=== PATIENT | female | born 1970 | race Two or more races ===

== ENCOUNTER 2016-07-13 19:36 | Emergency (ER) | payer OTHER ==
[2016-07-13 19:58] VITALS: BP 137/83; TEMP 98.1
[2016-07-13] MEDS ORDERED: IPRATROPIUM/ALBUTEROL 3 ML DEYVIAL IH ONE (20:05)
[2016-07-13] MEDS ORDERED: AZITHROMYCIN 250 MG TAB PO ONE (20:06)
--- NOTE | 2016-07-13 20:41 | UCPHY ---
H & P Time Seen by Provider: 07/13/16 19:57 Patient Type: Established HPI/ROS: This patient reports a one-week history of coughing. Despite using albuterol she reports ongoing hacking cough with increasing wheeze. She was seen near the onset of the symptoms at [facility] Emergency Department. She was diagnosed with a viral illness at that time. She was prescribed albuterol and guaifenesin with codeine and she ran out of the guaifenesin with codeine. She has associated nasal congestion. She reports onset of low-grade fevers over the past few days with sputum that appears dark yellow for 3 days. ROS: No high fevers or chills. She does report low-grade fevers. No other constitutional symptoms. HEENT: No facial pain. No sore throat. No ear pain. Pulmonary: No pleuritic pain. No respiratory distress. Cardiovascular: No lightheadedness. No leg swelling. GI: No vomiting. Integumentary: No rash. 10 point ROS is otherwise negative. Past Medical/Surgical History: Idiopathic pulmonary fibrosis Fibromyalgia Lupus Smoking Status: Never smoked Physical Exam: Vital signs are normal tonight except for an O2 sat of 95% room air General Appearance: Alert, no distress. Eyes: Pupils equal and round no pallor or injection. ENT, Mouth: Mucous membranes moist. Respiratory: Expiratory wheeze bilaterally with rhonchi bilaterally. Minimal rales at the bases that are consistent with prior exams of had with her and I think her baseline pulmonary fibrosis findings. Cardiovascular: Regular rate and rhythm. No murmur gallop rub. Gastrointestinal: Abdomen is soft and nontender, no masses, bowel sounds normal. Neurological: Alert with no focal deficits Skin: Warm and dry, no rashes. Musculoskeletal: Neck is supple nontender. Extremities are symmetrical, full range of motion. Psychiatric: Mood and affect normal DIFFERENTIAL DIAGNOSIS: After history and physical exam differential diagnosis was considered for bronchitis, pneumonia, URI with cough and mild asthma Constitutional: Initial Vital Signs Temperature (C) 36.7 C 07/13/16 19:53 Heart Rate 72 07/13/16 19:53 Respiratory Rate 20 07/13/16 19:53 Blood Pressure 137/83 H 07/13/16 19:53 O2 Sat (%) 95 07/13/16 19:53 O2 Delivery Mode Room Air Allergies/Adverse Reactions: metoclopramide HCl [From Reglan] Allergy (Intermediate, Verified 04/27/15 19:42) ROHINI LYNN prochlorperazine edisylate [From Compazine] Allergy (Verified 04/27/15 19:42) prochlorperazine maleate [From Compazine] Allergy (Verified 04/27/15 19:42) Home Medications: Medication Instructions Recorded Cymbalta 04/27/15 Albuterol 07/13/16 Albuterol Hfa Anes Only [Proair 2 puffs IH Q4 PRN #1 mdi 07/13/16 Hfa Icu (*)] Azithromycin [Zithromax] 250 mg PO DAILY #6 tab 07/13/16 Fluticasone Hfa 220 Mcg [Flovent 2 puffs IH DAILY #1 mdi 07/13/16 220 MCG Hfa MDI (*)] ROBITUSSIN-CF SYRUP 07/13/16 MDM/Departure - MDM Medications Given: Discontinued Medications Albuterol/Ipratropium (Duoneb) 3 ml IH EDNOW ONE Stop: 07/13/16 20:06 Last Admin: 07/13/16 20:17 Dose: 3 ml Azithromycin (Zithromax) 500 mg PO EDNOW ONE PRN Reason: Protocol Stop: 07/13/16 20:07 Last Admin: 07/13/16 20:17 Dose: 500 mg ED Course/Re-evaluation: This patient appears well clinically. I declined to provide guaifenesin with codeine as she is on no narcotics list. Explain this to her. She is given a DuoNeb with decreased wheeze increased aeration subjective improvement. Will start her on Flovent steroid inhaler in addition to her albuterol and Zithromax. 1st dose of Zithromax is given here. - Depart Disposition: Home, Routine, Self-Care Clinical Impression: Acute bronchitis Qualifiers: Bronchitis organism: unspecified organism Qualified Code(s): J20.9 - Acute bronchitis, unspecified Condition: Good Instructions: Acute Bronchitis (ED) Additional Instructions: Diagnosis: Acute bronchitis Plan: Humidifier Albuterol inhaler-2 puffs every 4 hours or your nebulizer every 4-6 hours for cough, wheeze or shortness of breath Flovent steroid inhaler for the next 10-14 days Zithromax antibiotic Follow up primary care physician for any ongoing symptoms Good the emergency department for any significant worsening despite the treatment plan. Prescriptions: Albuterol Hfa Anes Only [Proair Hfa Icu (*)] 2 puffs IH Q4 PRN #1 mdi PRN Reason: Wheezing Azithromycin [Zithromax] 250 mg PO DAILY #6 tab Fluticasone Hfa 220 Mcg [Flovent 220 MCG Hfa MDI (*)] 2 puffs IH DAILY #1 mdi Referrals: Lori Cummins DO [Primary Care Provider] - As per Instructions - PQRS PQRS Measurement: NA
[2016-07-13 20:58] VITALS: PULSE 78; RESP 18; O2SAT 97
== END 2016-07-13 20:58 | disposition home or self-care (01) ==
LOC: CED 19:36
DX: J20.9 Acute bronchitis, unspecified (principal)
CPT/HCPCS: 99214-PO; G0463-PO

== ENCOUNTER 2016-09-15 19:06 | Emergency (ER) | payer OTHER ==
[2016-09-15 19:26] VITALS: RESP 16; TEMP 98.8
--- NOTE | 2016-09-15 19:26 | EDPHY ---
H & P HPI/ROS: CHIEF COMPLAINT: "Lupus is acting up" HISTORY OF PRESENT ILLNESS: The patient is a 45 y/o female arriving with her mother complaining of Lupus exacerbation including a rash, anxiety, and migraine headache. She self- administered 30mg IM Toradol this morning for her migraine without complete alleviation. She has some associated nausea. She states migraine cocktails usually work for her when she comes into the ED. She states her migraine feels the same as previous episodes. No weakness or paresthesias. The rash is pruritic , has been present for a few days, is similar to previous rashes she has experienced. Her SLE was recently diagnosed and she is being followed by a specialist for this problem. She denies fever, shortness of breath, chest pain , abdominal pain, vomiting, diarrhea, dysuria. REVIEW OF SYSTEMS: A ten point review of systems was performed and is negative with the exception of the items mentioned in the HPI. Source: Patient Exam Limitations: No limitations - Personal History Tetanus Vaccine Date: 2007 - Medical/Surgical History PMH: PMH includes: 1. Lupus 2. Migraines Hx Asthma: Yes Hx Chronic Respiratory Disease: Yes Hx Diabetes: No Hx Cardiac Disease: No Hx Renal Disease: No Hx Cirrhosis: No Hx Alcoholism: No Hx HIV/AIDS: No Hx Splenectomy or Spleen Trauma: No Other PMH: idiopathic pulmonary fibrosis, lupus,fibramyalgia. Chronic Migraines. Gallbladder. partial thyroid. carpal tunnel bilat - Social History Smoking Status: Never smoked Alcohol Use: None Drug Use: None Additional Social History: Mother at bedside. PCP: Dr. Cummins. - Physical Exam Exam: General Appearance: Alert. Vital signs reviewed. Eyes: Pupils equal and round, no conjunctival injection, no discharge. Anicteric. ENT, Mouth: Mucous membranes are moist, no oropharyngeal erythema or edema. Neck: No lymphadenopathy, supple. Respiratory: Lungs are clear to auscultation; no wheezes, rales, or rhonchi. Cardiovascular: Regular rate and rhythm; no murmur, rub, or gallop. Gastrointestinal: Abdomen is soft and nontender, no masses or organomegaly, bowel sounds normal. Skin: Warm and dry, erythematous papular rash on forearms/hands, buttocks, a few on legs. No warmth. No excoriations. No fluctuance or drainage. Back: Nontender to palpation over the thoracolumbar spine. No CVAT. Extremities: No lower extremity edema, no calf tenderness or swelling. Neurological: Alert and oriented. Moving all four extremities easily and equally. PERRL. EOMI. Tongue midline. Facial expressions symmetric. Psychiatric: Normal affect. Constitutional: Initial Vital Signs Temperature (C) 37.1 C 09/15/16 19:23 Heart Rate 78 09/15/16 19:23 Respiratory Rate 16 09/15/16 19:23 Blood Pressure 128/81 H 09/15/16 19:23 O2 Sat (%) 93 09/15/16 19:23 O2 Delivery Mode Room Air Allergies/Adverse Reactions: metoclopramide HCl [From Reglan] Allergy (Intermediate, Verified 09/15/16 19:21) CREEPY CRAWLIES prochlorperazine edisylate [From Compazine] Allergy (Verified 09/15/16 19:21) prochlorperazine maleate [From Compazine] Allergy (Verified 09/15/16 19:21) Home Medications: Medication Instructions Recorded Cymbalta 04/27/15 Albuterol 07/13/16 Albuterol Hfa Anes Only [Proair 2 puffs IH Q4 PRN #1 mdi 07/13/16 Hfa Icu (*)] Fluticasone Hfa 220 Mcg [Flovent 2 puffs IH DAILY #1 mdi 07/13/16 220 MCG Hfa MDI (*)] Albuterol [Proventil Inhaler HFA 1 - 2 puffs IH Q4 #1 mdi 09/15/16 (*)] Synthroid 112 mcg (*) 09/15/16 tiZANidine HCL 09/15/16 Medical Decision Making ED Course/Re-evaluation: IV established. Migraine cocktail administered including 25mg IV Benadryl, 4mg IV Zofran, 15mg IV Toradol, and 1mg IV Ativan. Patient tells me that her rash is consistent with rash that she has experienced because of her lupus in the past. She is treating with the triamcinolone cream that was provided by her [employer], Dr. Delgado. She plans to follow up with him. She is not requesting additional treatment of her rash tonight. 2119: Reassessed patient. Headache better, not gone. She feels well enough to return home. I do not suspect infectious source of headache or intracranial hemorrhage. This headache is typical of previous migraines. Differential Diagnosis: Headache including but not limited to subarachnoid hemorrhage, migraine headache , tension headache and infectious causes such as meningitis, pharyngitis and sinusitis. - Data Points Medications Given: Discontinued Medications Diphenhydramine HCl (Benadryl Injection) 25 mg IVP EDNOW ONE Stop: 09/15/16 20:04 Last Admin: 09/15/16 20:20 Dose: 25 mg Sodium Chloride (Ns) 1,000 mls @ 0 mls/hr IV ONCE ONE PRN Reason: Wide Open Stop: 09/15/16 20:13 Last Admin: 09/15/16 20:12 Dose: 1,000 mls Ketorolac Tromethamine (Toradol) 15 mg IVP EDNOW ONE Stop: 09/15/16 20:04 Last Admin: 09/15/16 20:25 Dose: 15 mg Lorazepam (Ativan Injection) 1 mg IVP EDNOW ONE Stop: 09/15/16 20:04 Last Admin: 09/15/16 20:18 Dose: 1 mg Ondansetron HCl (Zofran) 4 mg IVP EDNOW ONE Stop: 09/15/16 20:04 Last Admin: 09/15/16 20:23 Dose: 4 mg Departure - Departure Disposition: Home, Routine, Self-Care Clinical Impression: Migraine Qualifiers: Migraine type: periodic headache syndrome Intractability: not intractable Qualified Code(s): G43.C0 - Periodic headache syndromes in child or adult, not intractable Condition: Good Instructions: Migraine Headache (ED) Additional Instructions: Follow up with Dr. Delgado about your rash. Call him tomorrow to set up an appointment. Referrals: Lori Cummins DO [Primary Care Provider] - As per Instructions Prescriptions: Albuterol [Proventil Inhaler HFA (*)] 1 - 2 puffs IH Q4 #1 mdi Report Scribed for: Archana Fatima Report Scribed by: Yolande Willett Date of Report: 09/15/16 Time of Report: 19:40 Physician Review and Approval Statement: 09/15/16 19:26 Portions of this note were transcribed by the medical device sales. I, Dr. Archana Fatima, personally performed the history, physical exam, and medical decision- making; and confirmed the accuracy of the information in the transcribed note.
[2016-09-15] MEDS ORDERED: LORazepam 2 MG/ML INJ IVP ONE (20:03)
[2016-09-15] MEDS ORDERED: ONDANSETRON 4 MG/2 ML VIAL IVP ONE (20:03)
[2016-09-15] MEDS ORDERED: KETOROLAC 30 MG/1 ML SDV IVP ONE (20:03)
[2016-09-15] MEDS ORDERED: NS 1,000 ML IV ONE (20:12)
[2016-09-15 21:52] VITALS: BP 114/54; PULSE 73; O2SAT 94
== END 2016-09-15 21:40 | disposition home or self-care (01) ==
LOC: CED 19:06
DX: G43.C0 Periodic headache syndromes in child or adult, not intractable (principal); J45.909 Unspecified asthma, uncomplicated
CPT/HCPCS: 96361; 96374; 96375; 99284; J1200; J1885; J2060; J2405

== ENCOUNTER 2017-03-05 16:47 | Emergency (ER) | payer OTHER ==
[2017-03-05 16:57] VITALS: BP 159/74; RESP 16; TEMP 98.4; O2SAT 95
[2017-03-05 17:02] VITALS: PULSE 80
--- NOTE | 2017-03-05 17:15 | EDPHY ---
H & P Stated Complaint: runny nose, cough, hot/cold, MANN Time Seen by Provider: 03/05/17 16:56 HPI/ROS: CHIEF COMPLAINT: Cough and fever History by patient HISTORY OF PRESENT ILLNESS: 38-year-old woman with a history of idiopathic pulmonary fibrosis presents complaining of 1 week of URI symptoms including runny nose and cough over the past 24 hours she feels like it settled into her chest the cough becomes productive of yellow sputum and associated with multiple episodes of coughing and posttussive with emesis. She has also developed a subjective fever and body aches and pain all over "including my hair ". She denies any diarrhea. She denies any ill contacts. She did not get a flu shot this year. She is not currently on any treatment for the idiopathic pulmonary fibrosis. She has been taking some DayQuil at home with minimal relief. REVIEW OF SYSTEMS: As in HPI, and all other systems reviewed and are negative Source: Patient - Personal History LMP (Females 10-55): 15-21 Days Ago Current Tetanus/Diphtheria Vaccine: Yes Tetanus Vaccine Date: 2007 - Medical/Surgical History Hx Asthma: Yes Hx Chronic Respiratory Disease: Yes Hx Diabetes: No Hx Cardiac Disease: No Hx Renal Disease: No Hx Cirrhosis: No Hx Alcoholism: No Hx HIV/AIDS: No Hx Splenectomy or Spleen Trauma: No Other PMH: idiopathic pulmonary fibrosis, lupus,fibramyalgia. Chronic Migraines. Gallbladder. partial thyroid. carpal tunnel bilat. guillian barre. G - Social History Smoking Status: Never smoked - Physical Exam Exam: General Appearance: Alert, obese, nontoxic. Eyes: Pupils equal and round no pallor or injection. ENT, Mouth: Mucous membranes moist. OB clear, no tonsillar enlargement or exudate Lymph: No cervical or submandibular nodes Respiratory: Normal, effort, lungs bilateral crackles right greater than left, No wheezes, rales or rhonchi. Cardiovascular: Regular rate and rhythm. S1, S2, no murmurs, gallops or rubs appreciated Gastrointestinal: Abdomen is soft and nontender, no masses, bowel sounds normal. Back: No CVA tenderness, no bony tenderness Neurological: Awake, alert and oriented x 3, no pronator drift, normal gait, no pronator drift Skin: Warm and dry, no rashes. Musculoskeletal: No deformities or tenderness. Extremitie:s full range of motion, no edema Psychiatric: Patient has normal affect, there is no agitation. Constitutional: Initial Vital Signs Temperature (C) 36.9 C 03/05/17 16:53 Heart Rate 80 03/05/17 16:53 Respiratory Rate 16 03/05/17 16:53 Blood Pressure 159/74 H 03/05/17 16:53 O2 Sat (%) 95 03/05/17 16:53 Allergies/Adverse Reactions: metoclopramide HCl [From Reglan] Allergy (Intermediate, Verified 09/15/16 19:21) CREEPY CRAWLIES prochlorperazine edisylate [From Compazine] Allergy (Verified 09/15/16 19:21) prochlorperazine maleate [From Compazine] Allergy (Verified 09/15/16 19:21) Home Medications: Medication Instructions Recorded Cymbalta 04/27/15 Synthroid 112 mcg (*) 09/15/16 tiZANidine HCL 09/15/16 AZITHROMYCIN [Z-PACK] 250 mg PO DAILY #6 tab 03/05/17 Albuterol [Proventil Inhaler HFA 1 - 2 puffs IH Q4H #1 mdi 03/05/17 (*)] PROMETHAZINE HCL 03/05/17 Toradol 03/05/17 Tramadol HCl 03/05/17 Zofran 03/05/17 Medical Decision Making ED Course/Re-evaluation: 38-year-old woman with history of idiopathic pulmonary fibrosis presents complaining of cough and fever with crackles on exam which she says are chronic. There is no evidence of hypoxia or systemic toxicity. Given her underlying lung disease we will err on the side of caution go ahead and prescribe her antibiotics. She is given a Z-Ruel. In addition I am recommending Ventolin inhaler for the cough. We discussed return precautions and other conservative measures for home care including Tylenol, ibuprofen and hot drinks with honey. Departure - Departure Disposition: Home, Routine, Self-Care Clinical Impression: Acute bronchitis Qualifiers: Bronchitis organism: unspecified organism Qualified Code(s): J20.9 - Acute bronchitis, unspecified Condition: Good Instructions: Acute Bronchitis (ED) Additional Instructions: You were seen by Dr. Nancy Georges. Use a humidifier in the room where you sleep. Try hot drinks with honey. Take ibuprofen 400-600mg 4 times daily and Tylenol 500-1000mg every 6 hours as needed for fever and/or pain. Take antibiotics prescribed and use the inhaler for cough when you have a coughing fit and before you go to bed at night. Return for any worsening or new concerns. Referrals: Lori Cummins DO [Primary Care Provider] - As per Instructions Prescriptions: Albuterol [Proventil Inhaler HFA (*)] 1 - 2 puffs IH Q4H #1 mdi AZITHROMYCIN [Z-PACK] 250 mg PO DAILY #6 tab
== END 2017-03-05 17:18 | disposition home or self-care (01) ==
LOC: CED 16:47
DX: J20.9 Acute bronchitis, unspecified (principal); J45.909 Unspecified asthma, uncomplicated

== ENCOUNTER 2017-09-17 16:10 | Emergency (ER) | payer OTHER ==
[2017-09-17 16:23] VITALS: BP 124/62
--- NOTE | 2017-09-17 16:39 | EDPHY ---
H & P Stated Complaint: c/o Cough x 2 days with SOB today Time Seen by Provider: 09/17/17 16:31 HPI/ROS: Chief Complaint: Cough,"bronchitis" HPI: 38-year-old woman history of pulmonary fibrosis presenting with 3 days of worsening cough, some tightness in her chest and wheezing. Cough is productive of clear sputum. No fevers or chills. No nausea or vomiting. Patient states that feels like her frequent bronchitis. No nausea or vomiting. No chest pain. Mild shortness of breath. ROS: 10 point Review of Systems is negative except as noted in the HPI. PMH: Pulmonary fibrosis Social History: No smoking, no alcohol, no recreational drug use Family History: non-contributory Physical Exam: Gen: Awake, Alert, No Distress HEENT: Nose: no rhinorrhea Eyes: PERRLA, EOMI Mouth: Moist mucosa Neck: Supple, no JVD Chest: nontender, mild diffuse expiratory wheeze with forced expiration, no focal rales or rhonchi Heart: S1, S2 normal, no murmur Abd: Soft, non-tender, no guarding Back: no CVA tenderness, no midline tenderness Ext: no edema, non-tender Skin: no rash Neuro: CN II-XII intact, Sensation grossly intact, Strength 5/5 in bilateral upper and lower extremities - Personal History LMP (Females 10-55): Post Menopausal Current Tetanus Diphtheria and Acellular Pertussis (TDAP): Yes Tetanus Vaccine Date: 2007 - Medical/Surgical History Hx Asthma: Yes Hx Chronic Respiratory Disease: Yes Hx Diabetes: No Hx Cardiac Disease: No Hx Renal Disease: No Hx Cirrhosis: No Hx Alcoholism: No Hx HIV/AIDS: No Hx Splenectomy or Spleen Trauma: No Other PMH: idiopathic pulmonary fibrosis, lupus,fibramyalgia. Chronic Migraines. Gallbladder. partial thyroid. carpal tunnel bilat. guillian barre. G - Social History Smoking Status: Never smoked Constitutional: Initial Vital Signs Temperature (C) 36.6 C 09/17/17 16:20 Heart Rate 71 09/17/17 16:20 Respiratory Rate 20 09/17/17 16:20 Blood Pressure 124/62 H 09/17/17 16:20 O2 Sat (%) 99 09/17/17 16:20 O2 Delivery Mode Room Air Allergies/Adverse Reactions: metoclopramide HCl [From Reglan] Allergy (Intermediate, Verified 09/15/16 19:21) ROHINI LYNN prochlorperazine edisylate [From Compazine] Allergy (Verified 09/15/16 19:21) prochlorperazine maleate [From Compazine] Allergy (Verified 09/15/16 19:21) Home Medications: Medication Instructions Recorded Cymbalta 04/27/15 Synthroid 112 mcg (*) 09/15/16 tiZANidine HCL 09/15/16 Albuterol [Proventil Inhaler HFA 1 - 2 puffs IH Q4H #1 mdi 03/05/17 (*)] PROMETHAZINE HCL 03/05/17 Toradol 03/05/17 Tramadol HCl 03/05/17 Albuterol [Proventil Inhaler HFA 1 - 2 puffs IH Q4H PRN #1 mdi 09/17/17 (*)] Doxycycline Hyclate 100 mg PO BID #14 capsule 09/17/17 Medical Decision Making ED Course/Re-evaluation: 38-year-old with cough, history of pulmonary fibrosis and symptoms consistent with bronchitis. Given her underlying lung disease will start her on doxycycline, albuterol inhaler and follow up with primary care physician. Departure - Departure Disposition: Home, Routine, Self-Care Clinical Impression: Acute bronchitis Condition: Good Instructions: Acute Bronchitis (ED) Additional Instructions: Alternate acetaminophen (1000 mg) with ibuprofen (400 mg) every 4 hours as needed for fevers, chills, aches or pain. Please take your full course of antibiotics. You may use the albuterol inhaler as prescribed. Referrals: Lori Cummins DO [Primary Care Provider] - As per Instructions Prescriptions: Albuterol [Proventil Inhaler HFA (*)] 1 - 2 puffs IH Q4H PRN #1 mdi PRN Reason: Wheezing Doxycycline Hyclate 100 mg PO BID #14 capsule
== END 2017-09-17 16:47 | disposition home or self-care (01) ==
LOC: CED 16:10
DX: J20.9 Acute bronchitis, unspecified (principal); J45.909 Unspecified asthma, uncomplicated

== ENCOUNTER 2017-11-13 21:04 | Emergency (ER) | payer OTHER ==
[2017-11-13] MEDS ORDERED: NS 1,000 ML IV ONE (21:34)
[2017-11-13] MEDS ORDERED: predniSONE 10 MG TAB PO ONE (21:35)
[2017-11-13] MEDS ORDERED: KETOROLAC 15 MG/1 ML SDV IVP ONE (21:36)
[2017-11-13] MEDS ORDERED: ACETAMINOPHEN 500 MG TAB PO ONE (22:06)
--- NOTE | 2017-11-13 22:06 | EDPHY ---
H & P Stated Complaint: pain "everywhere" x 2 days, possible lupus flareup per pt. Time Seen by Provider: 11/13/17 21:16 HPI/ROS: This patient presents complaining of onset of malar rash over the past 48 hr, fatigue and"achy everywhere". She explains that she has diffuse arthralgias more than myalgias and of the symptoms are similar to previous lupus flares. The last 1 was about a year ago. She reports that the arthralgias are severe and the myalgias are moderate. She also reports a mild frontal headache 5/10 in intensity few hours duration similar prior headaches. Her family member dropped her off here by private vehicle for further evaluation. ROS: Constitutional: Positive for fatigue. No fevers. HEENT: No URI symptoms, no sore throat. No ear pain or other complaints except for the headache mentioned in HPI. Neuro: No numbness tingling or focal weakness. Musculoskeletal: She denies any wrist swelling. Pulmonary: No pleuritic pain. She has mild dyspnea she attributes to her idiopathic pulmonary fibrosis and mild anxiety which is baseline for her. No increase in baseline dyspnea today. No coughing. Cardiovascular: No chest pain. No lightheadedness. GI: No abdominal pain. She is tolerating good p.o. Intake. : No flank pain. No hematuria. No dysuria frequency urgency. Integumentary: Malar rash as mentioned in HPI. No other rash. Endocrine: No complaints Complete review of symptoms is otherwise negative. Source: Patient Exam Limitations: No limitations - Personal History LMP (Females 10-55): 15-21 Days Ago Current Tetanus Diphtheria and Acellular Pertussis (TDAP): Yes Tetanus Vaccine Date: 2007 - Medical/Surgical History Hx Asthma: Yes Hx Chronic Respiratory Disease: Yes Hx Diabetes: No Hx Cardiac Disease: No Hx Renal Disease: No Hx Cirrhosis: No Hx Alcoholism: No Hx HIV/AIDS: No Hx Splenectomy or Spleen Trauma: No Other PMH: idiopathic pulmonary fibrosis, lupus,fibramyalgia. Chronic Migraines. Gallbladder. partial thyroid. carpal tunnel bilat. guillian barre - Social History Smoking Status: Never smoked Alcohol Use: Rarely Drug Use: None - Physical Exam Exam: General Appearance: Alert, no distress. Eyes: Pupils equal and round no pallor or injection. No conjunctival injection. ENT, Mouth: Mucous membranes moist. Oropharynx is clear. Mild frontal tenderness. No other cranial tenderness. No sinus tenderness to percussion. Respiratory: There are no retractions, lungs are clear to auscultation. Cardiovascular: Regular rate and rhythm. No murmur gallop rub. Gastrointestinal: Abdomen is soft and nontender, no masses, bowel sounds normal. Neurological: GCS 15 with no focal deficits. Cranial nerves 2-12 grossly intact. Skin: Warm and dry, she has a mild malar rash on her face slightly warm to touch. Musculoskeletal: Neck is supple nontender. She has no wrist swelling or other joint swelling, erythema or warmth to touch. Extremities are symmetrical, full range of motion. Psychiatric: Mood and affect are normal DIFFERENTIAL DIAGNOSIS: After history and physical exam differential diagnosis was considered for mild lupus flare, muscle strain, anxiety, lupus nephritis Constitutional: Initial Vital Signs Temperature (C) 36.4 C 11/13/17 21:18 Heart Rate 61 11/13/17 21:18 Respiratory Rate 18 11/13/17 21:18 Blood Pressure 147/81 H 11/13/17 21:18 O2 Sat (%) 97 11/13/17 21:18 O2 Delivery Mode Room Air Allergies/Adverse Reactions: metoclopramide HCl [From Reglan] Allergy (Intermediate, Verified 11/13/17 21:17) CREEPY CRAWLIES prochlorperazine edisylate [From Compazine] Allergy (Verified 11/13/17 21:17) prochlorperazine maleate [From Compazine] Allergy (Verified 11/13/17 21:17) Home Medications: Medication Instructions Recorded Cymbalta 04/27/15 Synthroid 112 mcg (*) 09/15/16 Albuterol [Proventil Inhaler HFA 1 - 2 puffs IH Q4H #1 mdi 03/05/17 (*)] PROMETHAZINE HCL 03/05/17 Toradol 03/05/17 Tramadol HCl 03/05/17 Methocarbamol [Robaxin 750 mg (*)] 750 - 1,500 mg PO QID PRN #30 tab 11/13/17 Potassium Chloride Po [Potassium 20 meq PO DAILY #7 units 11/13/17 Chloride 20 mg/15 ml (*)] predniSONE 7.5 mg PO DAILY #30 tablet 11/13/17 Medical Decision Making ED Course/Re-evaluation: IV normal saline bolus Toradol 15 mg IV Prednisone 10 mg p.o. Tylenol 1 g p.o. Studies: Metabolic panel normal except for a low potassium of 3.0. Urine dip is normal. POC CBCs malfunctioning. CBC sent to [place] lab impending Patient given 20 mEq of potassium for hypokalemia Discussion: Patient presents with a mild lupus flare, findings consistent with tension headache and mild hypokalemia. I counseled regarding this. No red flag findings. Patient improved with treatment. Will DC her on prednisone, Tylenol methocarbamol for her symptoms and lupus flare as well as supplemental potassium for the next week with follow up with primary care physician and Rheumatology. She understands need to return emergency department should she develop worsening despite the treatment plan. - Data Points Laboratory Results: 11/13/17 21:58 POC Sodium 138 mEq/L mEq/L (135-145) POC Potassium 3.0 mEq/L L mEq/L (3.3-5.0) POC Chloride 101.0 mEq/L mEq/L (97-110) POC Total CO2 26 mEq/L mEq/L (22-31) POC BUN 5 mg/dL L mg/dL (7-23) POC Creatinine 0.9 mg/dL mg/dL (0.6-1.0) POC Glucose 111 mg/dL H mg/dL (70-100) POC Calcium 9.4 mg/dL mg/dL (8.5-10.4) Medications Given: Discontinued Medications Acetaminophen (Tylenol) 1,000 mg PO EDNOW ONE Stop: 11/13/17 22:07 Last Admin: 11/13/17 22:24 Dose: 1,000 mg Sodium Chloride (Ns) 1,000 mls @ 0 mls/hr IV EDNOW ONE; Wide Open PRN Reason: Protocol Stop: 11/13/17 21:35 Last Admin: 11/13/17 21:45 Dose: 1,000 mls Ketorolac Tromethamine (Toradol) 15 mg IVP EDNOW ONE Stop: 11/13/17 21:37 Last Admin: 11/13/17 21:59 Dose: 15 mg Potassium Chloride (Potassium Chloride Oral Liquid) 20 meq PO EDNOW ONE Stop: 11/13/17 22:15 Last Admin: 11/13/17 22:25 Dose: 20 meq Prednisone (Prednisone) 10 mg PO EDNOW ONE Stop: 11/13/17 21:36 Last Admin: 11/13/17 21:59 Dose: 10 mg Point of Care Test Results: Chemistry 11/13/17 21:58 POC Sodium 138 mEq/L mEq/L (135-145) POC Potassium 3.0 mEq/L L mEq/L (3.3-5.0) POC Chloride 101.0 mEq/L mEq/L (97-110) POC Total CO2 26 mEq/L mEq/L (22-31) POC BUN 5 mg/dL L mg/dL (7-23) POC Creatinine 0.9 mg/dL mg/dL (0.6-1.0) POC Glucose 111 mg/dL H mg/dL (70-100) POC Calcium 9.4 mg/dL mg/dL (8.5-10.4) Urine Dip Collection Date 11/13/17 Collection Time 22:20 Specific [place] (1.002-1.030) 1.010 PH (5.0-7.5) 6.5 Leukocytes (Negative) Trace Nitrites (Negative) Negative Protein (Negative) Negative Glucose (Negative) Negative Ketones (Negative) Negative Urobilnogen (0.2-1.0 EU) 0.2 Bilirubin (Negative) Negative Blood (Negative) Negative Departure - Departure Disposition: Home, Routine, Self-Care Clinical Impression: Hypokalemia, Tension headache Lupus Qualifiers: Lupus erythematosus form: systemic Systemic lupus erythematosus type: unspecified Systemic lupus erythematosus organ involvement: unspecified Qualified Code(s): M32.9 - Systemic lupus erythematosus, unspecified Condition: Good Instructions: Hypokalemia (ED), Lupus Erythematosus (DC) Additional Instructions: Diagnoses: 1. Lupus flare 2. Hyperkalemia 3. Tension headache Plan: Prednisone as prescribed Tylenol and methocarbamol as needed for pain do not exceed 3000 mg of Tylenol in 24 hr Potassium-20 mEq daily for the next 7 days Call your product support specialist arrange follow-up appointment sometime within the next 5-10 days for recheck. Caught her primary care physician for recheck in 5-7 days to recheck her potassium level. Return emergency department for any significant worsening despite treatment plan Referrals: Lori Cummins DO [Primary Care Provider] - As per Instructions Prescriptions: Methocarbamol [Robaxin 750 mg (*)] 750 - 1,500 mg PO QID PRN #30 tab PRN Reason: Muscle Spasms Potassium Chloride Po [Potassium Chloride 20 mg/15 ml (*)] 20 meq PO DAILY #7 units predniSONE 7.5 mg PO DAILY #30 tablet
[2017-11-13] MEDS ORDERED: POTASSIUM CL 20 MEQ/15 ML UDCUP PO ONE (22:14)
[2017-11-13 22:55] VITALS: BP 132/66
== END 2017-11-13 23:03 | disposition home or self-care (01) ==
LOC: CED 21:04
DX: M32.9 Systemic lupus erythematosus, unspecified (principal); G44.209 Tension-type headache, unspecified, not intractable; E87.6 Hypokalemia; E86.9 Volume depletion, unspecified; J45.909 Unspecified asthma, uncomplicated
CPT/HCPCS: 96374; 99284; J1885; J7512; 80048-PO

== ENCOUNTER 2018-02-01 19:19 | Emergency (ER) | payer OTHER ==
[2018-02-01] MEDS ORDERED: KETOROLAC 30 MG/1 ML SDV IVP ONE (19:40)
[2018-02-01] MEDS ORDERED: ONDANSETRON 4 MG/2 ML VIAL IVP ONE ×2 (19:40→20:48)
[2018-02-01] MEDS ORDERED: NS 1,000 ML IV ONE (19:40)
--- NOTE | 2018-02-01 20:32 | EDPHY ---
H & P Stated Complaint: Migraine since 2299-nausea. Time Seen by Provider: 02/01/18 19:26 HPI/ROS: This patient describes migraine headache right frontal location throbbing in nature 8/10 intensity associated with nausea and vomiting. She explains that the headache started gradually last night around 10:00 p.m. And has worsened since that time. She usually gets relief from home Toradol IM injections but is currently out of Toradol. She had vomiting that started at 1:00 a.m.. She has had few more episodes of vomiting through the day and has diminished appetite due to her ongoing nausea. She reports some blurred vision and mild vertiginous symptoms that are common with her prior migraines. She has them now as well to mild degree. No other associated symptoms. No other exacerbating factors except that she has worsening of the headache with movement. She has associated photophobia Her mother brought here by private vehicle for evaluation. ROS: Constitutional: No fevers or fatigue HEENT: No recent URI symptoms or other complaints Neuro: No confusion. No focal numbness tingling weakness. Pulmonary: No shortness of breath or other complaints cardiovascular: No lightheadedness. GI: No abdominal pain. No hematemesis : No urinary symptoms Integumentary: No skin rash 10 point review of symptoms is performed and otherwise negative with exception of pertinent positives and negatives listed in HPI and ROS Source: Patient Exam Limitations: No limitations - Personal History LMP (Females 10-55): 15-21 Days Ago Current Tetanus/Diphtheria Vaccine: No Current Tetanus Diphtheria and Acellular Pertussis (TDAP): No Tetanus Vaccine Date: 2007 - Medical/Surgical History Hx Asthma: Yes Hx Chronic Respiratory Disease: Yes Hx Diabetes: No Hx Cardiac Disease: No Hx Renal Disease: No Hx Cirrhosis: No Hx Alcoholism: No Hx HIV/AIDS: No Hx Splenectomy or Spleen Trauma: No Other PMH: idiopathic pulmonary fibrosis, lupus,fibromyalgia. Chronic Migraines. Gallbladder. partial thyroid. carpal tunnel bilat. guillian barre - Social History Smoking Status: Current some day smoker Alcohol Use: Occasionally Drug Use: Marijuana - Physical Exam Exam: Physical exam: Vital signs are normal General: Patient is in no acute distress. HEENT: Is no external evidence of trauma on exam. Eyes: Pupils are equal and reactive to light. Extraocular motions are intact. Optic fundi: Clear with no papilledema or hemorrhage. Nose atraumatic. Ears: Clear bilaterally with no hemotympanum. Oropharynx: No dental trauma or malocclusion. No intraoral lacerations. Eyes: Pupils are equal and reactive to light. Extraocular motions are intact. Optic fundi: Clear with no papilledema or hemorrhage. Lungs: Clear to auscultation bilaterally Neck: Supple no meningismus. Cardiac: Regular rate and rhythm no murmur gallop or rub. Abdomen: Soft nontender no organomegaly Neuro: GCS of 15. Cranial nerves II through XII intact. Cerebellar exam is normal as judged by symmetric rapid hand movements bilaterally. No pronator drift. No sensory or motor deficits are appreciated. Initial differential diagnosis: Migraine, tension headache, MANIPULATOR OPERATOR lesion, intracranial bleed Constitutional: Initial Vital Signs Temperature (C) 36.4 C 02/01/18 19:31 Heart Rate 50 L 02/01/18 19:31 Respiratory Rate 16 02/01/18 19:31 Blood Pressure 133/72 H 02/01/18 19:31 O2 Sat (%) 94 02/01/18 19:31 O2 Delivery Mode Room Air Allergies/Adverse Reactions: metoclopramide HCl [From Reglan] Allergy (Intermediate, Verified 11/13/17 21:17) CREEPY CRAWLIES prochlorperazine edisylate [From Compazine] Allergy (Intermediate, Verified 19:29) Other-Enter Comments prochlorperazine maleate [From Compazine] Allergy (Verified 02/01/18 19:29) Home Medications: Medication Instructions Recorded Cymbalta 04/27/15 Synthroid 112 mcg (*) 09/15/16 Albuterol [Proventil Inhaler HFA 1 - 2 puffs IH Q4H #1 mdi 03/05/17 (*)] PROMETHAZINE HCL 03/05/17 Toradol 03/05/17 Tramadol HCl 03/05/17 predniSONE 7.5 mg PO DAILY #30 tablet 11/13/17 Ondansetron Odt [Zofran Odt] 4 - 8 mg PO Q4PRN PRN #4 tab 02/01/18 Medical Decision Making ED Course/Re-evaluation: IV normal saline bolus Zofran, Benadryl, Toradol IV with improvement Patient had repeat dose of Zofran Benadryl and had good relief of nausea and headache. Discussion: Patient presents with migraine headache typical for prior migraines without red flag findings that would suggest MANIPULATOR OPERATOR infection, intracranial hemorrhage or other concerning finding soon improved with standard treatment. She understands need to return should she develop worsening symptoms despite treatment plan of continue your medications taking Zofran if needed for nausea. - Data Points Medications Given: Discontinued Medications Diphenhydramine HCl (Benadryl Injection) 25 mg IVP EDNOW ONE Stop: 02/01/18 19:41 Last Admin: 02/01/18 20:00 Dose: 25 mg Diphenhydramine HCl (Benadryl Injection) 25 mg IVP EDNOW ONE Stop: 02/01/18 20:49 Last Admin: 02/01/18 20:57 Dose: 25 mg Sodium Chloride (Ns) 1,000 mls @ 0 mls/hr IV ONCE ONE; Wide Open PRN Reason: Protocol Stop: 02/01/18 19:41 Last Admin: 02/01/18 19:53 Dose: 1,000 mls Ketorolac Tromethamine (Toradol) 30 mg IVP EDNOW ONE Stop: 02/01/18 19:41 Last Admin: 02/01/18 20:01 Dose: 30 mg Ondansetron HCl (Zofran) 4 mg IVP EDNOW ONE Stop: 02/01/18 19:41 Last Admin: 02/01/18 20:00 Dose: 4 mg Ondansetron HCl (Zofran) 4 mg IVP EDNOW ONE Stop: 02/01/18 20:49 Last Admin: 02/01/18 20:58 Dose: 4 mg Departure - Departure Disposition: Home, Routine, Self-Care Clinical Impression: Migraine Qualifiers: Migraine type: without aura Status migrainosus presence: without status migrainosus Intractability: not intractable Qualified Code(s): G43.009 - Migraine without aura, not intractable, without status migrainosus Vomiting Qualifiers: Vomiting type: unspecified Vomiting Intractability: non-intractable Nausea presence: with nausea Qualified Code(s): R11.2 - Nausea with vomiting, unspecified Condition: Good Instructions: Migraine Headache (ED), Acute Nausea and Vomiting (ED) Additional Instructions: Diagnosis: Migraine 2. Vomiting Plan: Drink plenty of fluids. Light diet until you feel improved. Zofran if needed for nausea vomiting. Follow up with primary care physician for any ongoing symptoms Return for any significant worsening despite treatment plan Referrals: Lori Cummins DO [Primary Care Provider] - As per Instructions
[2018-02-01 21:37] VITALS: BP 134/78
== END 2018-02-01 21:45 | disposition home or self-care (01) ==
LOC: CED 19:19
DX: R11.2 Nausea with vomiting, unspecified (principal); G43.009 Migraine without aura, not intractable, without status migrainosus; M32.9 Systemic lupus erythematosus, unspecified; E86.9 Volume depletion, unspecified; F17.200 Nicotine dependence, unspecified, uncomplicated
CPT/HCPCS: 96361; 96374; 96375; 96376; 99284; J1200; J1885; J2405

== ENCOUNTER 2018-04-29 17:52 | Emergency (ER) | payer OTHER ==
[2018-04-29] MEDS ORDERED: NS 1,000 ML IV ONE (18:18)
[2018-04-29] MEDS ORDERED: ONDANSETRON 4 MG/2 ML VIAL IVP ONE ×2 (18:20→20:05)
[2018-04-29] MEDS ORDERED: KETOROLAC 30 MG/1 ML SDV IVP ONE (18:21)
--- NOTE | 2018-04-29 20:03 | EDPHY ---
H & P Stated Complaint: MANN x 3 days Time Seen by Provider: 04/29/18 17:57 HPI/ROS: 47-year-old female presents complaining her typical migraine however has been lasting for 3 days. No fevers or chills, no neck pain. Review of systems As per HPI General no fever no chills no weakness HEENT no eye pain no eye discharge. No eye redness, no sore throat Respiratory no cough, no shortness of breath Cardiac no chest pain, no peripheral edema GI no abdominal pain, no diarrhea, no constipation, positive nausea, no vomiting no flank pain, no hematuria, no dysuria Musculoskeletal no myalgias, no joint pain Heme no easy bruising, no easy bleeding Endo no polyuria, no polydipsia Skin no rashes, no pruritus Neuro no syncope, no dizziness, positive headaches Psych is no suicidal ideation, no homicidal ideation Source: Patient Exam Limitations: No limitations - Personal History LMP (Females 10-55): 1-7 Days Ago Current Tetanus Diphtheria and Acellular Pertussis (TDAP): Yes Tetanus Vaccine Date: within 10 years - Medical/Surgical History Hx Asthma: Yes Hx Chronic Respiratory Disease: Yes Hx Diabetes: No Hx Cardiac Disease: No Hx Renal Disease: No Hx Cirrhosis: No Hx Alcoholism: No Hx HIV/AIDS: No Hx Splenectomy or Spleen Trauma: No Other PMH: idiopathic pulmonary fibrosis, lupus,fibromyalgia. Chronic Migraines. Gallbladder. partial thyroid. carpal tunnel bilat,. guillian barre - Family History Significant Family History: No pertinent family hx - Social History Smoking Status: Current every day smoker Alcohol Use: None Drug Use: None - Physical Exam Exam: 47-year-old female alert and oriented no acute distress nontoxic appearance, afebrile No photophobia HEENT atraumatic normocephalic, extraocular muscles intact, anicteric Oropharynx negative for erythema negative exudate, tolerating her own secretions Neck supple no meningismus Lungs clear to auscultation bilaterally Heart regular rate and rhythm without murmur rub or gallop Abdomen nondistended normoactive bowel sounds soft nontender Back no CVA tenderness, no step-offs, no spinal tenderness Extremities no cyanosis clubbing or edema Neuro alert and oriented, no focal deficits Constitutional: Initial Vital Signs Temperature (C) 36.5 C 04/29/18 17:59 Heart Rate 69 04/29/18 17:59 Respiratory Rate 16 18 17:59 Blood Pressure 126/89 H 04/29/18 17:59 O2 Sat (%) 94 04/29/18 17:59 O2 Delivery Mode Room Air Allergies/Adverse Reactions: dexamethasone [From Decadron] Allergy (Verified 04/29/18 20:11) metoclopramide HCl [From Reglan] Allergy (Verified 04/29/18 18:02) PT REPORTS "CREEPY CRAWLIES" prochlorperazine edisylate [From Compazine] Allergy (Verified 04/29/18 18:02) PT REPORTS "feels like climbing the holly" prochlorperazine maleate [From Compazine] Allergy (Verified 04/29/18 18:02) PT REPORTS "feels like climbing the holly" Home Medications: Medication Instructions Recorded Cymbalta 04/27/15 Synthroid 112 mcg (*) 09/15/16 PROMETHAZINE HCL 03/05/17 Toradol 03/05/17 Tramadol HCl 03/05/17 Albuterol [Proventil Inhaler HFA 04/29/18 (*)] Ondansetron Odt [Zofran Odt] 04/29/18 Medical Decision Making ED Course/Re-evaluation: Patient seen and evaluated for her typical migraine, however longer duration. IV established Patient given IV normal saline Toradol 30 mg IV push Ondansetron 4 mg IV push Diphenhydramine 25 mg IV push ondansetron repeated x 1 then given Haldol 2.5 mg ivp marked relief Impression Migraine Plan Discharge home Rest drink plenty of liquids Follow-up with primary care Differential Diagnosis: Differential diagnosis considered but not limited to: Migraine, tension headache - Data Points Medications Given: Discontinued Medications Dexamethasone (Decadron Injection) 4 mg IVP EDNOW ONE Stop: 04/29/18 20:05 Last Admin: 04/29/18 20:14 Dose: Not Given Diphenhydramine HCl (Benadryl Injection) 25 mg IVP EDNOW ONE Stop: 04/29/18 18:19 Last Admin: 04/29/18 19:29 Dose: 25 mg Haloperidol Lactate (Haldol Injection) 2.5 mg IVP EDNOW ONE Stop: 04/29/18 20:41 Last Admin: 04/29/18 20:46 Dose: 2.5 mg Sodium Chloride (Ns) 1,000 mls @ 0 mls/hr IV ONCE ONE PRN Reason: Wide Open Stop: 04/29/18 18:19 Last Admin: 04/29/18 19:29 Dose: 1,000 mls Ketorolac Tromethamine (Toradol) 30 mg IVP EDNOW ONE Stop: 04/29/18 18:22 Last Admin: 04/29/18 19:29 Dose: 30 mg Ondansetron HCl (Zofran) 4 mg IVP EDNOW ONE Stop: 04/29/18 18:21 Last Admin: 04/29/18 19:29 Dose: 4 mg Ondansetron HCl (Zofran) 4 mg IVP EDNOW ONE Stop: 04/29/18 20:06 Last Admin: 04/29/18 20:13 Dose: 4 mg Departure - Departure Disposition: Home, Routine, Self-Care Clinical Impression: Migraine Condition: Good Instructions: Migraine Headache (ED) Referrals: Lori Cummins DO [Primary Care Provider] - As per Instructions
[2018-04-29] MEDS ORDERED: DEXAMETHASONE 4 MG/ML VIAL IVP ONE (20:04)
[2018-04-29] MEDS ORDERED: HALOPERIDOL LACT 5 MG/ML INJ IVP ONE (20:40)
[2018-04-29 21:08] VITALS: BP 120/70
== END 2018-04-29 21:13 | disposition home or self-care (01) ==
LOC: CED 17:52
DX: G43.909 Migraine, unspecified, not intractable, without status migrainosus (principal); M79.7 Fibromyalgia; F17.200 Nicotine dependence, unspecified, uncomplicated
CPT/HCPCS: 96361; 96374; 96375; 96376; 99284; J1100; J1200; J1630; J1885; J2405

== ENCOUNTER 2018-04-30 18:13 | Emergency (ER) | payer OTHER ==
[2018-04-30 18:21] VITALS: BP 160/75
[2018-04-30] MEDS ORDERED: IPRATROPIUM/ALBUTEROL 3 ML DEYVIAL IH ONE (18:32)
--- NOTE | 2018-04-30 19:06 | EDPHY ---
H & P Time Seen by Provider: 04/30/18 18:13 HPI/ROS: CHIEF COMPLAINT: Shortness of breath HISTORY OF PRESENT ILLNESS: Patient presents with complaints of shortness of breath. She states that has been going on all day long. She has a history of pulmonary fibrosis and feels that this is a normal exacerbation of this condition. She was seen in the emergency department yesterday for migraine headache. Her headache is resolved. She denies any chest pain. She has had no cough or other infectious symptoms. She denies fever. She has had no nausea , vomiting, diarrhea. She did try an inhaler at home about 4 times over the course of the day with not much relief. REVIEW OF SYSTEMS: Constitutional: No fever, no chills. Eyes: No discharge. ENT: No sore throat. Cardiovascular: No chest pain, no palpitations. Respiratory: No cough, no shortness of breath. Gastrointestinal: No abdominal pain, no vomiting. Genitourinary: No dysuria. Musculoskeletal: No back pain. Skin: No rashes. Neurological: No headache. General Appearance: Alert, no distress. Eyes: Pupils equal and round no pallor or injection. ENT, Mouth: Mucous membranes moist. Respiratory: There are no retractions, lungs are clear to auscultation. No wheezes heard. Cardiovascular: Regular rate and rhythm. Gastrointestinal: Abdomen is soft and nontender, no masses, bowel sounds normal. Neurological: Awake and alert, cranial nerves intact, normal movement at all 4 extremities. Skin: Warm and dry, no rashes. Musculoskeletal: Neck is supple nontender. Extremities are symmetrical, full range of motion, no edema. Psychiatric: Patient is oriented X 3, there is no agitation. Medical/surgical history: Pulmonary fibrosis, lupus, chronic migraines, fibromyalgia, Guillain-[place]. Surgeries include gallbladder, thyroidectomy, bilateral carpal tunnel. Social history: Patient denies tobacco, recreational drugs, EtOH. States uses medical marijuana. Smoking Status: Current every day smoker Constitutional: Initial Vital Signs Temperature (C) 36.4 C 04/30/18 18:18 Heart Rate 60 04/30/18 18:18 Respiratory Rate 16 04/30/18 18:18 Blood Pressure 160/75 H 04/30/18 18:18 O2 Sat (%) 95 04/30/18 18:18 O2 Delivery Mode Room Air Allergies/Adverse Reactions: dexamethasone [From Decadron] Allergy (Verified 04/30/18 18:21) metoclopramide HCl [From Reglan] Allergy (Verified 04/30/18 18:21) PT REPORTS "CREEPY CRAWLIES" prochlorperazine edisylate [From Compazine] Allergy (Verified 04/30/18 18:21) PT REPORTS "feels like climbing the holly" prochlorperazine maleate [From Compazine] Allergy (Verified 18 18:21) PT REPORTS "feels like climbing the holly" Home Medications: Medication Instructions Recorded Cymbalta 04/27/15 Synthroid 112 mcg (*) 09/15/16 PROMETHAZINE HCL 03/05/17 Toradol 03/05/17 Tramadol HCl 03/05/17 Albuterol [Proventil Inhaler HFA 04/29/18 (*)] Ondansetron Odt [Zofran Odt] 04/29/18 Medical Decision Making ED Course/Re-evaluation: 7:00 p.m. re-evaluation after DuoNeb, patient states feels better, does not think she needs any more breathing treatments and requesting to go home. Differential Diagnosis: Differential diagnosis includes but is not limited to viral syndrome, acute bronchitis, exacerbation of pulmonary fibrosis, CHF. After evaluation patient with mild exacerbation of her pulmonary fibrosis without indication of infectious etiology, other cardiopulmonary cause. After a single DuoNeb patient feeling better and requesting to be discharged. Vital signs within normal limits and no hypoxia or fever noted. Patient has appointment with primary care physician on Monday and understands return precautions. Stable for discharge. - Data Points Medications Given: Discontinued Medications Albuterol/Ipratropium (Duoneb) 3 ml IH EDNOW ONE Stop: 04/30/18 18:33 Last Admin: 04/30/18 18:37 Dose: 3 ml Departure - Departure Clinical Impression: Chronic obstructive pulmonary disease with acute exacerbation Condition: Good Instructions: Shortness of Breath (ED) Additional Instructions: Continue to use your inhaler at home as discussed. See your primary care doctor in the next 1-3 days without fail. return to the ED if your symptoms worsen or other concerns. Referrals: NONE *PRIMARY CARE P,. [Primary Care Provider] - As per Instructions
== END 2018-04-30 19:11 | disposition home or self-care (01) ==
LOC: CED 18:13
DX: J44.1 Chronic obstructive pulmonary disease with (acute) exacerbation (principal); J84.10 Pulmonary fibrosis, unspecified; F17.200 Nicotine dependence, unspecified, uncomplicated

== ENCOUNTER 2018-08-17 16:20 | Emergency (ER) | payer OTHER ==
[2018-08-17] MEDS ORDERED: NS 1,000 ML IV ONE (16:44)
[2018-08-17] MEDS ORDERED: KETOROLAC 30 MG/1 ML SDV IVP ONE (16:44)
[2018-08-17] MEDS ORDERED: HALOPERIDOL LACT 5 MG/ML INJ IVP ONE (16:45)
--- NOTE | 2018-08-17 16:46 | EDPHY ---
H & P Stated Complaint: MANN, nausea, vomiting x 5 days Time Seen by Provider: 08/17/18 16:39 HPI/ROS: CHIEF COMPLAINT: Migraine headache HISTORY OF PRESENT ILLNESS: Patient is a 47-year-old female who suffers from recurrent migraines and is followed by Neurology. She states that she has had a migraine for the last 6 days. On Monday which is 4 days ago she had Botox injections in her scalp as well as a Toradol injection as well as sumatriptan and Emgality. She states that these did not help. They usually do. She reports that her current migraine is typical. It is not the worst headache of her life. It is not thunderclap in onset. She does not have any focal weakness or deficits. She does complain of some blurry vision which also frequently accompanies her migraines. Severity: Moderate Modifying factors: See above REVIEW OF SYSTEMS: Constitutional: denies: chills, fever, recent illness, recent injury EENTM: denies: blurred vision, double vision, nose congestion Respiratory: denies: cough, shortness of breath Cardiac: denies: chest pain, irregular heart rate, lightheadedness, palpitations Gastrointestinal/Abdominal: denies: abdominal pain, diarrhea, nausea, vomiting, blood streaked stools Genitourinary: denies: dysuria, frequency, hematuria, pain Musculoskeletal: denies: joint pain, muscle pain Skin: denies: lesions, rash, jaundice, bruising Neurological: See HPI denies: numbness, paresthesia, tingling, dizziness, weakness Hematologic/Lymphatic: denies: blood clots, easy bleeding, easy bruising Immunologic/allergic: denies: HIV/AIDS, transplant 10 systems reviewed and negative except as noted EXAM: GENERAL: Well-appearing, well-nourished and in no acute distress. HEAD: Atraumatic, normocephalic. EYES: Pupils equal round and reactive to light, extraocular movements intact, sclera anicteric, conjunctiva are normal. ENT: TMs normal, nares patent, oropharynx clear without exudates. Moist mucous membranes. NECK: Normal range of motion, supple without lymphadenopathy or JVD. LUNGS: Breath sounds clear to auscultation bilaterally and equal. No wheezes rales or rhonchi. HEART: Regular rate and rhythm without murmurs, rubs or gallops. ABDOMEN: Soft, nontender, normoactive bowel sounds. No guarding, no rebound. No masses appreciated. BACK: No CVA tenderness, no spinal tenderness, step-offs or deformities EXTREMITIES: Normal range of motion, no pitting or edema. No clubbing or cyanosis. NEUROLOGICAL: Cranial nerves II through XII grossly intact. Normal speech, normal gait. 5/5 strength, normal movement in all extremities, normal sensation , normal reflexes PSYCH: Normal mood, normal affect. SKIN: Warm, dry, normal turgor, no visible rashes or lesions. toprdal, sumatriptan amgaladin botox Exam Limitations: No limitations - Personal History LMP (Females 10-55): 8-14 Days Ago Current Tetanus Diphtheria and Acellular Pertussis (TDAP): Yes Tetanus Vaccine Date: within 10 years - Medical/Surgical History Hx Asthma: Yes Hx Chronic Respiratory Disease: Yes Hx Diabetes: No Hx Cardiac Disease: No Hx Renal Disease: No Hx Cirrhosis: No Hx Alcoholism: No Hx HIV/AIDS: No Hx Splenectomy or Spleen Trauma: No Other PMH: idiopathic pulmonary fibrosis, lupus,fibromyalgia. Chronic Migraines. Gallbladder. partial thyroid. carpal tunnel bilat,. guillian barre - Family History Significant Family History: No pertinent family hx - Social History Smoking Status: Never smoked Alcohol Use: None Constitutional: Initial Vital Signs Temperature (C) 37 C 08/17/18 16:33 Heart Rate 70 08/17/18 16:33 Respiratory Rate 16 08/17/18 16:33 Blood Pressure 139/81 H 08/17/18 16:33 O2 Sat (%) 92 08/17/18 16:33 O2 Delivery Mode Room Air Allergies/Adverse Reactions: dexamethasone [From Decadron] Allergy (Verified 08/17/18 16:37) Pt reports itching, "wants to jump out of skin" metoclopramide HCl [From Reglan] Allergy (Verified 08/17/18 16:37) PT REPORTS "CREEPY CRAWLIES" prochlorperazine edisylate [From Compazine] Allergy (Verified 08/17/18 16:37) PT REPORTS "feels like climbing the hol[place]" prochlorperazine maleate [From Compazine] Allergy (Verified 08/17/18 16:37) PT REPORTS "feels like climbing the holly" Home Medications: Medication Instructions Recorded Cymbalta 04/27/15 Synthroid 112 mcg (*) 09/15/16 PROMETHAZINE HCL 03/05/17 Toradol 03/05/17 Tramadol HCl 03/05/17 Medical Decision Making ED Course/Re-evaluation: 7:15 p.m. I revisited the patient several times. She is now feeling completely better. She asked to be discharged. She declines prescriptions. She will follow up with her neurologist as previously planned. We discussed indications for returning to the ER. Differential Diagnosis: Partial list of the Differential diagnosis considered include but were not limited to; migraine headache, tension headache and although unlikely based on the history and physical exam, I also considered dissection, radiculopathy, infection, tumor. - Data Points Medications Given: Discontinued Medications Diphenhydramine HCl (Benadryl Injection) 25 mg IVP EDNOW ONE Stop: 08/17/18 16:45 Last Admin: 08/17/18 17:27 Dose: 25 mg Haloperidol Lactate (Haldol Injection) 5 mg IVP EDNOW ONE Stop: 08/17/18 16:46 Last Admin: 08/17/18 17:29 Dose: 5 mg Sodium Chloride (Ns) 1,000 mls @ 0 mls/hr IV ONCE ONE; Wide Open PRN Reason: Protocol Stop: 08/17/18 16:45 Last Admin: 08/17/18 17:24 Dose: 1,000 mls Ketorolac Tromethamine (Toradol) 15 mg IVP EDNOW ONE Stop: 08/17/18 16:45 Last Admin: 08/17/18 17:24 Dose: 15 mg Ondansetron HCl (Zofran) 4 mg IVP EDNOW ONE Stop: 08/17/18 18:24 Last Admin: 08/17/18 18:27 Dose: 4 mg Ondansetron HCl (Zofran) 4 mg IVP EDNOW ONE Stop: 08/17/18 18:24 Last Admin: 08/17/18 19:45 Dose: Not Given Departure - Departure Disposition: Home, Routine, Self-Care Clinical Impression: Migraine Qualifiers: Migraine type: unspecified Status migrainosus presence: with status migrainosus Intractability: not intractable Qualified Code(s): G43.901 - Migraine, unspecified, not intractable, with status migrainosus Condition: Fair Instructions: Migraine Headache (ED) Referrals: NONE *PRIMARY CARE P,. [Primary Care Provider] - As per Instructions Raghu Lima MD [Doctor of Osteopathy] - As per Instructions
[2018-08-17] MEDS ORDERED: ONDANSETRON 4 MG/2 ML VIAL IVP ONE ×2 (18:23)
[2018-08-17 19:25] VITALS: BP 112/67
== END 2018-08-17 19:23 | disposition home or self-care (01) ==
LOC: CED 16:20
DX: G43.909 Migraine, unspecified, not intractable, without status migrainosus (principal); E86.9 Volume depletion, unspecified; M32.9 Systemic lupus erythematosus, unspecified; J84.112 Idiopathic pulmonary fibrosis
CPT/HCPCS: 96361; 96374; 96375; 99284; J1200; J1630; J1885; J2405